=== PATIENT | male | born 1985 | race Caucasian/White ===

== ENCOUNTER 2021-02-17 00:50 | Emergency (ER) | payer OTHER ==
[~2021-02-17] VITALS: Ht 172.7 cm; Wt 83.9 kg
[2021-02-17 00:54] VITALS: BP 114/89
--- NOTE | 2021-02-17 00:54 | NUR ---
TO BED AMBULATORY
--- NOTE | 2021-02-17 00:59 | NUR ---
Dr. Drake examining patient.
--- NOTE | 2021-02-17 01:00 | NUR ---
RECEIVED IN BED 11 FROM TRIAGE, REQUESTING REFILL FOR SUBOXONE. IS AWAKE AND ALERT, APPEARS IN NAD
[2021-02-17] MEDS ORDERED: ONDANSETRON 4 MG/2 ML VIAL IVP ONE (01:05)
[2021-02-17] MEDS ORDERED: NACL 0.9% 1,000 ML IV ONE (01:05)
[2021-02-17 02:16] LABS: BARBITURATE, URINE NEGATIVE ng/ml (NEG <=200)
[2021-02-17 02:17] LABS: BENZODIAZEPINE, URINE NEGATIVE ng/mL (NEG <=200); CANNABINOID, URINE NEGATIVE ng/mL (NEG <=50); COCAINE, URINE NEGATIVE ng/mL (NEG <=300); OPIATE, URINE NEGATIVE ng/mL (NEG <=2000); PHENCYCLIDINE SCREEN,URINE NEGATIVE ng/mL (NEG <=25)
[2021-02-17] MEDS ORDERED: ONDA8TAB87 PO (02:42)
[2021-02-17] MEDS ORDERED: IBUP-2213 PO (02:42)
[2021-02-17] MEDS ORDERED: LOPE-289 PO (02:42)
[2021-02-17 02:50] VITALS: BP 124/68
--- NOTE | 2021-02-17 02:50 | NUR ---
Patient discharged with v/s stable. Written and verbal after care instructions given and explained. Patient alert, oriented and verbalized understanding of instructions. Ambulatory with steady gait. All questions addressed prior to discharge. ID band removed. Patient advised to follow up with PMD. Rx of MOTRIN, IMODIUM, ZOFRAN given. Patient educated on indication of medication including possible reaction and side effects. Opportunity to ask questions provided and answered.
== END 2021-02-17 02:50 | disposition home or self-care (01) ==
LOC: MED 00:50
DX: F11.23 Opioid dependence with withdrawal (principal); R50.9 Fever, unspecified; R11.2 Nausea with vomiting, unspecified; R19.7 Diarrhea, unspecified; F17.210 Nicotine dependence, cigarettes, uncomplicated
CPT/HCPCS: 80305; 96361; 96374; 99283; J2405; J7030